=== PATIENT | female | born 1935 | race Caucasian/White ===

== ENCOUNTER 2016-12-07 18:17 | Emergency (ER) | payer MEDICARE ==
[~2016-12-07] VITALS: Ht 154.9 cm; Wt 68.0 kg
[~2016-12-07 18:17] MED LIST: AMLO5TAB2 PO; ATOR10TA PO; DESV100T PO; LEVO50TA PO
[2016-12-07] MEDS ORDERED: WELLBUTRIN PO (18:36)
[2016-12-07] MEDS ORDERED: CYMBALTA PO (18:36)
[2016-12-07] MEDS ORDERED: IV NORMAL SALINE 500 ML BAG IV ONE (18:45)
[2016-12-07 18:52] LABS: BASOPHILS % (AUTO) 0.5 % (0.0-2.0); EOSINOPHILS # (AUTO) 0.4 K/uL (0.0-0.7); EOSINOPHILS % (AUTO) 4.4 % (0.0-7.0); HEMATOCRIT 33.2 % (37-47); HEMOGLOBIN 11.1 G/DL (12.0-16.0); LYMPHOCYTES # (AUTO) 3.4 K/UL (0.8-4.8); LYMPHOCYTES % (AUTO) 35.1 % (20.5-51.5); MEAN CORPUSCULAR HEMOGLOBIN 30.5 UUG (27.0-31.0); MEAN CORPUSCULAR HGB CONC 33 g/dL (32.0-37.0); MEAN CORPUSCULAR VOLUME 91.4 FL (81.0-99.0); MONOCYTES # (AUTO) 1.5 K/UL (0.1-1.30); MONOCYTES % (AUTO) 15.2 % (0.0-11.0); NEUTROPHILS # (AUTO) 4.4 K/UL (1.8-8.9); NEUTROPHILS % (AUTO) 44.8 % (38.5-71.5); PLATELET COUNT (AUTO) 303 K/UL (150-450); RED BLOOD CELL COUNT(AUTO) 3.63 MIL/UL (4.2-5.4); WHITE BLOOD COUNT (AUTO) 9.7 K/UL (4.0-11.2)
--- NOTE | 2016-12-07 19:02 | NUR ---
Patient is resting comfortably on gurney with spouse at bedside. Patient is AOX4, calm and breathing easily, still for results and disposition.
[2016-12-07 19:04] LABS: ALANINE AMINOTRANSFERASE 34 U/L (14-59); ALKALINE PHOSPHATASE 69 U/L (50-136); ASPARTATE AMINOTRANSFERASE 19 U/L (15-37); BILIRUBIN,DIRECT 0.1 mg/dL (0.0-0.2); BILIRUBIN,TOTAL 0.2 mg/dL (0.2-1.0); CARBON DIOXIDE 27 mmol/L (21-32); CHLORIDE 107 mmol/L (98-107); CREATININE 1.4 mg/dL (0.6-1.3); GLUCOSE 103 mg/dL (74-106); POTASSIUM 4.3 mmol/L (3.5-5.1); TOTAL PROTEIN, SERUM 6.3 g/dL (6.4-8.2); UREA NITROGEN, BLOOD 27 mg/dL (7-18)
--- NOTE | 2016-12-07 19:08 | NUR ---
Received report from DOROTHY Rankin. Assumed care of pt at this time. Dr. Rothman at bedside.
--- NOTE | 2016-12-07 19:10 | NUR ---
Pt to CT via [facility]
[2016-12-07 19:31] LABS: EOSINOPHILS % (MANUAL) 3 % (0-8); LYMPHOCYTES % (MANUAL) 36 % (20-40); MONOCYTES % (MANUAL) 8 % (2-10); NEUTROPHILS % (MANUAL) 53 % (42-75)
[2016-12-07] MEDS ORDERED: ONDANSETRON IV *ER 4 MG/2 ML VIAL IV ONE (19:45)
[2016-12-07] MEDS ORDERED: HYDROMORPHONE 1 MG/1 ML DISP.SYRIN IV ONE (19:45)
--- NOTE | 2016-12-07 19:50 | NUR ---
Pt returned from CT via gurney. Pt assisted with bedpan. Pt medicated for pain, will monitor for effects of medication. Pt resting in position of comfort for self.
[2016-12-07] MEDS ORDERED: HYDROMORPHONE 2 MG/1 ML DISP.SYRIN ONE (19:58)
[2016-12-07] MEDS ORDERED: ONDANSETRON 4 MG/2 ML VIAL ONE (19:58)
--- NOTE | 2016-12-07 20:20 | NUR ---
DR KIRKLAND INTO RE EVAL PATIENT. PATIENT REQUESTING TO BE D/C'ED AND NOT TO BE ADMITTED.
--- NOTE | 2016-12-07 20:40 | NUR ---
PATIENT ABLE TO ABMULATE IN ROOM. STATES "I OK TO GO HOME"
--- NOTE | 2016-12-07 21:00 | NUR ---
Patient discharged to home in stable conditon WITH TAKING PATIENT HOME. Written and verbal after care instructions given. Patient verbalizes understanding of instructions. PATIENT WAS WHEELED TO PRIVATE VEHICLE BY YASMEEN VIA WHEELCHAIR
[2016-12-07 21:03] VITALS: BP 158/85
== END 2016-12-07 21:06 | disposition home or self-care (01) ==
LOC: ER 18:17
DX: S52.201A Unspecified fracture of shaft of right ulna, initial encounter for closed fracture (principal); S06.0X0A Concussion without loss of consciousness, initial encounter; R55 Syncope and collapse; I10 Essential (primary) hypertension; E78.5 Hyperlipidemia, unspecified; E03.9 Hypothyroidism, unspecified; W22.8XXA Striking against or struck by other objects, initial encounter; Y93.89 Activity, other specified; Y92.512 Supermarket, store or market as the place of occurrence of the external cause; Y99.9 Unspecified external cause status
CPT/HCPCS: 29105; 36415; 70450; 71010; 73080; 80048; 80076; 84484; 85025; 85730; 93005; 96374; 96375; 99285; A4663; J1170; J2405; 70030-TC